=== PATIENT | female | born 1970 ===

== ENCOUNTER 2016-06-15 06:47 | Day surgery (SDC) | payer OTHER ==
[2016-06-15 07:16] VITALS: BMI 35.4
[2016-06-15] MEDS ORDERED: Propofol 10 mg/ml Inj (20 ML) ONE (08:27)
[2016-06-15] MEDS ORDERED: Lactated Ringer's 1,000 ML IV SCH (08:30)
[2016-06-15] MEDS ORDERED: Lidocaine Hydrochloride 5 ML INJ ONE (08:47)
[2016-06-17 15:23] VITALS: RESP 18; O2SAT 98
[2016-06-17 15:24] VITALS: BP 129/75; PULSE 63; TEMP 98
== END 2016-06-15 09:50 | disposition home or self-care (01) ==
LOC: C.ENDO 06:47
PROVIDERS: ATTEND Internal Medicine Gastroenterology
DX: K29.70 Gastritis, unspecified, without bleeding (principal); K44.9 Diaphragmatic hernia without obstruction or gangrene; R10.13 Epigastric pain; I10 Essential (primary) hypertension; J45.909 Unspecified asthma, uncomplicated
CPT/HCPCS: 43239; 88305; 88313 ×2; 88342 ×2; J2704; J7120

== ENCOUNTER 2016-11-18 12:12 | Emergency (ER) | payer OTHER ==
[2016-11-18 12:32] VITALS: BP 115/82; RESP 18; TEMP 98
[2016-11-18] MEDS ORDERED: Lidocaine 5% Patch TD STA (12:43)
[2016-11-18] MEDS ORDERED: Acetaminophen-Codeine 300/30 mg Tab PO STA (12:43)
--- NOTE | 2016-11-18 12:43 | C.PDOC ---
History Of Present Illness 46 year old female presents to ED for evaluation of intermittent left sided back pain for the last 3 weeks. Pt reports lower back pain radiating to front and left thigh. No extremity weakness, numbness. Pt reports taking Tylenol without any relief of symptoms. L BACK PAIN X 3 WEEKS. INTERMIT. LOWER BACK RADIATION FRONT AND SIDE L THIGH. NO WEAKN,NUMB. NO RELIEF W TYLENOL EXAM MILD DIST NONTOXIC BACK AROM WO DIFF. REPRODUC PAIN W ROM NONTEND NEURO INTACT GAIT WNL Time Seen by Provider: 11/18/16 12:34 Chief Complaint (Nursing): Lower Extremity Problem/Injury History Per: Patient History/Exam Limitations: no limitations Onset/Duration Of Symptoms: Days (3 weeks), Intermittent Episodes Quality Of Discomfort: "Pain" Previous Symptoms: Back Pain Associated Symptoms: None. denies: Incontinence, New Weakness, New Numbness Exacerbating Factor(s): Nothing Recent travel outside of the [place]: No Additional History Per: Patient Past Medical History Reviewed: Historical Data, Nursing Documentation, Vital Signs Vital Signs: Last Vital Signs Temp 98.0 F 11/18/16 12:27 Pulse 71 11/18/16 12:56 Resp 18 11/18/16 12:56 BP 115/82 11/18/16 12:27 Pulse Ox 95 11/18/16 13:20 - Medical History PMH: Anxiety, Asthma, Depression, Gastritis, HTN Denies: Chronic Kidney Disease Surgical History: Appendectomy - [facility] Procedures APPLICATION OF SPLINT (08/17/13) INJECT/INFUSE NEC (10/06/12) LAPAROSCOP APPENDECTOMY (09/15/14) VACCINATION NEC (09/15/14) Family History: States: Unknown Family Hx - Social History Hx Alcohol Use: No Hx Substance Use: No - Immunization History Hx Tetanus Toxoid Vaccination: No Hx Influenza Vaccination: No Hx Pneumococcal Vaccination: No Review Of Systems Except As Marked, All Systems Reviewed And Found Negative. Constitutional: Negative for: Fever, Chills Genitourinary: Negative for: Incontinence Musculoskeletal: Positive for: Back Pain (left lower), Leg Pain (left thigh) Skin: Negative for: Rash Neurological: Negative for: Weakness, Numbness Physical Exam - Physical Exam Appears: Non-toxic, Other (In mild distress) Skin: Normal Color, Warm, Dry Head: Atraumatic, Normacephalic Back: No CVA Tenderness, No Vertebral Tenderness, No Muscle Spasm, Other (AROM without difficulty. Reproducible pain with ROM) Extremity: Normal ROM, No Tenderness, Capillary Refill (<2 sec.), No Deformity Extremity: Bilateral: Atraumatic Neurological/Psych: Oriented x3, Normal Speech, Normal Cognition Gait: Steady ED Course And Treatment O2 Sat by Pulse Oximetry: 95 (on RA) Pulse Ox Interpretation: Normal Progress Note: Plan: [place], and Tylenol/codeine Disposition Counseled Patient/Family Regarding: Diagnosis, Need For Followup, Rx Given - Disposition Referrals: [facility] [Outside] [facility] [Outside] Disposition: HOME/ ROUTINE Disposition Time: 12:41 Condition: IMPROVED Additional Instructions: retire el parche 12 horas despus de la aplicacin inicial. Prescriptions: Acetaminophen/Codeine [Tylenol/Codeine 300 MG/30 MG] 2 tab PO Q6H #20 tab Dexamethasone 12 mg PO ONCE #2 tablet Instructions: Sciatica (ED) Forms: [facility] (German), Work Excuse Print Language: [id number] - Clinical Impression Clinical Impression: Lumbar radiculopathy - Scribe Statement The provider has reviewed the documentation as recorded by the Scribe Nia Holguin All medical record entries made by the Scribe were at my direction and personally dictated by me. I have reviewed the chart and agree that the record accurately reflects my personal performance of the history, physical exam, medical decision making, and the department course for this patient. I have also personally directed, reviewed, and agree with the discharge instructions and disposition.
[2016-11-18] MEDS ORDERED: Lidocaine 5% Patch TD ONE (12:48)
[2016-11-18] MEDS ORDERED: Acetaminophen-Codeine 300/30 mg Tab PO ONE (12:52)
[2016-11-18 12:59] VITALS: PULSE 71
[2016-11-18 13:09] VITALS: O2SAT 95
== END 2016-11-18 13:03 | disposition home or self-care (01) ==
LOC: C.ER 12:12
DX: M54.16 Radiculopathy, lumbar region (principal)

== ENCOUNTER 2017-12-15 09:11 | Day surgery (SDC) | payer MEDICAID ==
--- NOTE | 2017-12-15 10:45 | CP.SDSHP ---
Same Day Surgery H & P - History Proposed Procedure: US guided FNA of neck lymph node Pre-Op Diagnosis: Breast cancer - Allergies Allergies: Allergies aspirin Allergy (Verified 09/11/16 11:50) RASH seafood Allergy (Uncoded 11/18/16 12:32) - Physical Exam Mental Status: Alert & Oriented x3 - Impression Impression: US showed 1 cm and an 8 mm submental node. The size of the nodes is not amenable to FNA. Recommend surgical removal if there is any concern for metastatic breast cancer. Otherwise, follow up ultrasound in 3-6 months recommended. Pt. Evaluated Today:Candidate for Anesthesia & Procedure: No - Date & Time Date: 12/15/17 Time: 10:40 Short Stay Discharge - Short Stay Discharge Admitting Diagnosis/Reason for Visit: DX: NECK MASS Disposition: HOME/ ROUTINE
--- NOTE | 2017-12-15 13:08 | US ---
PROCEDURE: Date of procedure: 12/15/2017 Procedure: Limited ultrasound of neck for purposes of biopsy. HISTORY: Breast cancer and neck lymph nodes.. TECHNIQUE: A limited ultrasound of patient's neck was performed. Two small submental lymph nodes within the 0.8 centimeter 1 centimeter. The size of the lymph nodes also position a submental area is not amenable to percutaneous FNA. IMPRESSION: Some of the lymph nodes as described. Lymph nodes are too small for FNA. If there is clinical concern is for metastatic breast cancer, recommend surgical removal of lymph node.
== END 2017-12-15 11:30 | disposition home or self-care (01) ==
LOC: C.SPRAD 09:11
PROVIDERS: ATTEND Radiology Vascular & Interventional Radiology
DX: R59.0 Localized enlarged lymph nodes (principal); Z53.8 Procedure and treatment not carried out for other reasons; Z85.3 Personal history of malignant neoplasm of breast